=== PATIENT | female | born 1995 | race African-American/Black ===

== ENCOUNTER 2025-10-20 09:13 | Inpatient (IN) ==
[2025-10-20] MEDS ORDERED: LACTATED RINGERS 1,000 ML IV PRN (09:50)
[2025-10-20] MEDS ORDERED: SODIUM CHLORIDE FLUSH 0.9% 10 ML SYRINGE IVP PRN (09:50)
[2025-10-20] MEDS ORDERED: ONDANSETRON ODT 4 MG TABLET PO PRN (09:50)
[2025-10-20] MEDS ORDERED: fentaNYL 100 MCG/2 ML VIAL IVP PRN (09:50)
[2025-10-20] MEDS ORDERED: TRANEXAMIC ACID IN NACL 1,000 MG/100 ML BAG IV PRN (09:50)
[2025-10-20] MEDS ORDERED: CALCIUM CARBONATE CHEW 500 MG TABLET PO PRN (09:50)
[2025-10-20] MEDS ORDERED: METHYLERGONOVINE 0.2 MG/ML VIAL IM PRN (09:50)
[2025-10-20] MEDS ORDERED: DOCUSATE SODIUM 100 MG CAPSULE PO PRN (09:50)
[2025-10-20] MEDS ORDERED: ACETAMINOPHEN 500 MG TABLET PO PRN ×2 (09:50→10:40)
[2025-10-20] MEDS ORDERED: TERBUTALINE 1 MG/ML VIAL SUBQ PRN (09:50)
[2025-10-20] MEDS ORDERED: FAMOTIDINE 20 MG/2 ML VIAL IVP PRN (09:50)
[2025-10-20] MEDS ORDERED: CARBOPROST TROMETHAMINE 250 MCG/ML VIAL IM PRN (09:50)
[2025-10-20] MEDS ORDERED: OXYTOCIN 10 UNIT/ML VIAL IM PRN (09:50)
[2025-10-20] MEDS ORDERED: hydrALAZINE INJ 20 MG/ML VIAL IVP PRN ×3 (09:50→10:40)
[2025-10-20] MEDS ORDERED: LABETALOL 20 MG/4 ML SYRINGE IVP PRN ×5 (09:50→10:40)
[2025-10-20] MEDS ORDERED: METOCLOPRAMIDE 10 MG TABLET PO PRN (09:50)
--- NOTE | 2025-10-20 09:50 | HISTORY & PHYSICAL EXAMINATION ---
Admit History Smoking Status: Former smoker Other Maternal History Other Maternal History: Patient is a 30-year-old G7, P2 at 39 weeks 2 days gestation presenting for term labor with rupture of membranes. Membranes ruptured around the time of arrival. She was 5 cm at that time. She has good movement. No LIN/BV or RUQP. No vaginal bleeding. Denies nausea and vomiting. Denies urinary urgency or dysuria. All other symptoms reviewed and were negative except per HPI. Course LMP: End dec DELIA by LMP: US: 03/26/25 - 9w4d Final DELIA: 10/25/25 Problems: Pt states babies born 1 month early RH negative: rhogam given 08/23 + Trichomonas at 1st visit - self-swab repeated 05/29 and neg Pre- Weight: 143 BMI: 27 Blood type: O-RHOGAM AT 28WKSGiven 08/23 Antibody: Negative CBC: 11.2/33.7/288 RUB: Immune VZV:immune HBsAg: negative HepC: NR RPR/AB-EIA: NR HIV: Negative A1C: 5.3 PAP:2021 normal, due . was <30, due 3 yrs GC/CT: POSITIVE TRICH - treated- Negative 08/07/25, recheck with GBS. HSV: denies in self and partner Genetic testing: NIPT- negative Covid: declined 08/23 Flu: declined 08/23 FAS: scheduled 06/04 Placenta: anterior without previa Cord: 3VC WAGNER: WNL EFW: 310g 55% 50gm OGCT: 146 3HR GTT: no showed TDAP: declined 08/07, 08/23 Breast Pump: given declines RSV vaccine 3rd trimester: CBC:11.8/35.0/272 RPR:NR Antibody Screen:Negative 08/07/25, rhogam 08/23 GBS: 10/02/2025 Delivery plan: Contraception: depot provera? Meds/Allgy Home Medications Ambulatory Orders Medication Instructions Recorded Confirmed PNV 153-FA 400 mcg-om3 35 mg-dha tab PO .daily 5 10/02/25 25 mg-epa 5 mg-fish oil chew tablet ( Gummies) blood sugar diagnostic (Blood #50 ea 08/07/25 10/02/25 Glucose Test strips) blood-glucose meter (Blood Glucose #1 ea 08/07/2504/21 Monitoring kit) lancets 33 gauge #100 ea 08/07/25 10/02/25 lancets 28 gauge (FreeStyle #100 ea 09/18/25 10/02/25 Lancets) Allergies Allergies Allergy/AdvReac Type Severity Reaction Status Date / Time No Known Drug Allergies Allergy Verified 10/02/25 09:47 [facility] Active Problems All Active Problems (Updated 10/20/25 @ 11:07 by Juancarlos Caro MD) 39 weeks gestation of (Acute) Glucose intolerance of (Acute) Rh negative status during (Acute) Supervision of normal (Acute) Medical History Medical History (Updated 10/20/25 @ 11:07 by Juancarlos Caro MD) Encounter for screening for infections with a predominantly sexual mode of transmission Asthma Has not needed an inhaler since she was a child. Social History Social History (Updated 08/07/25 @ 12:57 by Nick Alexander MD) Smoking Status: Smoker with current status unk If you are a former smoker, when did you quit? (Date/Year): 2023 Number of Years Smoked: 2 Do you vape?: No ETOH Use: None Substance Use: denies use Physical Other Notes Labor Progress Note/Additional Text: General: Alert, oriented, umcomfortable with contractions Head: Normal cephalic atraumatic Eyes: PERRLA, extraocular motions intact. Respiratory: Normal rate of respiration. No accessory muscle use, normal respiratory effort. Abdomen: Gravid, nontender, nondistended Extremities: Normal range of motion Neuro: Oriented x3. Normal movements Psych: Appropriate mood and affect. Normal judgment and insight SVE: 7/100/0 FHT: 145 BPM baseline, moderate variability, accelerations present, no decelerations. [place]: 2-4 minutes Plan for Labor Plan For Labor I expect patient to be DC'd or transferred within 96 hours.: Yes Conclusion/Plan Problem List (1) 39 weeks gestation of : Plan: Admit to L&D, admit labs, epidural patient's request, anticipate . (2) Rh negative status during : Plan: Work up . Qualifiers: Trimester: third trimester Qualified Code(s): O26.893 - Other specified related conditions, third trimester; Z67.91 - Unspecified blood type, Rh negative (3) Supervision of normal : Plan: As above. Qualifiers: Normal : other normal Trimester: third trimester Qualified Code(s): Z34.83 - Encounter for supervision of other normal , third trimester (4) Glucose intolerance of : Plan: Did not do 3-hour GTT. Monitor blood sugars . Lab Results 10/20/25 09:30
[2025-10-20] MEDS ORDERED: LACTATED RINGERS 1,000 ML ONE (09:56)
[2025-10-20] MEDS ORDERED: OXYTOCIN/SODIUM CHLORIDE 500 ML IV ONE (09:58)
[2025-10-20] MEDS ORDERED: OXYTOCIN 10 UNIT/ML VIAL ONE (09:58)
[2025-10-20 10:11] LABS: HCT - HEMATOCRIT 34.6 % (37.0-47.0); HGB - HEMOGLOBIN 11.0 g/dL (12.0-16.0); MEAN PLATELET VOLUME 11.2 fL (7.9-10.8); NRBC ABSOLUTE COUNT (AUTO) 0.00 x10^3/uL; NUCLEATED RED BLOOD CELLS AUTO 0.0 /100WBC; PLT - PLATELET COUNT 286 10^3/uL (130-450); RED CELL DISTRIBUTION WIDTH 14.3 % (12.0-15.0)
[2025-10-20] MEDS: OXYTOCIN/SODIUM CHLORIDE 500 ML IV PRN (10:27)
[2025-10-20] MEDS ORDERED: OXYTOCIN/SODIUM CHLORIDE 500 ML IV PRN (10:40)
[2025-10-20] MEDS ORDERED: ONDANSETRON 4 MG/2 ML VIAL IVP PRN (10:40)
[2025-10-20] MEDS ORDERED: NALOXONE 0.4 MG/ML VIAL IVP PRN (10:40)
[2025-10-20] MEDS ORDERED: LABETALOL 5 MG/1 ML 20 ML MDV IVP PRN (10:40)
[2025-10-20] MEDS ORDERED: WITCH HAZEL/GLYCERIN 1 PAD TOP PRN (10:40)
[2025-10-20] MEDS ORDERED: HYDROCORTISONE 1% CREAM 28 GM TUBE TOP PRN (10:40)
--- NOTE | 2025-10-20 11:11 | DELIVERY NOTE ---
OB Labor and Delivery Note Labor Labor: Spontaneous Delivery Method Delivery Method: Spontaneous vaginal delivery Presentation Presentation: Vertex Nuchal Cord Nuchal Cord: None Amniotic Fluid Description Amniotic Fluid Description: Clear Delivery Outcome Delivery Date: 10/20/25 Delivery Time: 10:22 Delivery Outcome: Livebirth [place]: Placed in direct skin contact with mother and [place] used Cord Cord: 3 vessels Placenta Placenta: Intact Estimated Blood Loss Estimated Blood Loss (in cc): 200 Post Delivery Events Post Delivery Events: No post delivery events Delivery Comments (Free Text/Narrative) Delivery Comments (Free Text/Narrative): Preoperative Diagnoses 39 weeks gestation Term labor Rh- Glucose intolerance of Postoperative Diagnoses Same Delivery of live wolfe Status post spontaneous vaginal delivery Summary Patient came in at 39 weeks with spontaneous rupture membranes and active labor. She was 5 cm on admission. She was moved to labor room and after show vitals rechecked and found to be 7 cm. Short while later, she felt an urge to push and was checked and found to be complete. Delivery Summary: Patient was placed in the dorsal lithotomy position. Upon maternal pushing the head was delivered atraumatically followed by the anterior shoulder, posterior shoulder, then the remainder of the infant's body. She had no nuchal cord, but the cord was wrapped around the body, leg, arm. A female infant was delivered with APGARS of 8 at 1 minute and 9 at 5 minutes. The was placed on its mother's chest . After the cord finished pulsating, the umbilical cord was clamped times two and cut. The placenta delivered intact with three vessel cord, but small piece of membrane that tore off, this was grasped with a ring forcep and gently removed. Placenta was not sent to pathology. Oxytocin was administered. Uterine massage was performed until uterus was deemed firm. Patient did not tolerate vaginal exam or fundal exam as well. Upon inspection of the perineum, vagina and cervix were intact. Upon re- inspection the patient was hemostatic. Uterus again massaged and found to be firm. Needle and sponge counts were correct. Patient was stable and allowed to recover in L&D room. was stable and remained in room with mother. weight is pending at this time.
[2025-10-20] MEDS: IBUPROFEN 600 MG TABLET PO PRN (11:35)
[2025-10-20] MEDS: ACETAMINOPHEN 500 MG TABLET PO PRN (11:35)
[2025-10-20 13:18] LABS: ALT ALANINE AMINOTRANSFERASE 7.0 IU/L (10-60); AST ASPARTATE AMINOTRANSFERASE 15.0 IU/L (10-42); BUN - BLOOD UREA NITROGEN 7.0 mg/dL (6-20); CARBON DIOXIDE - CO2 21.0 mmol/L (21-32); CREATININE 0.4 mg/dL (0.6-1.3); GFR - MDRD 224.0 (>89)
--- NOTE | 2025-10-20 13:56 | PHARMACY PROGRESS NOTE ---
Best Possible Medication History Admit Date and Time: 10/20/25 [id number] Home Medications Medication Instructions Recorded Confirmed Type PNV 153-FA 400 mcg-om3 35 mg-dha 1 tab PO DAILY 10/20/25 History 25 mg-epa 5 mg-fish oil chew tablet ( Gummies) blood sugar diagnostic (Blood #50 ea 08/07/25 10/02/25 Rx Glucose Test strips) blood-glucose meter (Blood Glucose #1 ea 08/07/2504/21 Rx Monitoring kit) lancets 33 gauge #100 ea 08/07/25 10/02/25 Rx lancets 28 gauge (FreeStyle #100 ea 09/18/25 10/02/25 Rx Lancets) Processed by: Pharmacy Medications reviewed in ED?: No Medication History completed: Yes [facility] Statement: As the person ultimately responsible for medication therapy, providers are able to order a medication from an existing home medication list in [facility] via the "Reconcile Routine" prior to Confirmation of that medication by lab support tech. Such practice is discouraged except when the physician, in their clinical suyapa gment, deems that a medical need exists for a medication without regard to previous use.
[2025-10-20] MEDS: RHO(D) IMMUNE GLOBULIN 300 MCG SYRINGE IVP ONE (16:46)
[2025-10-20] MEDS: SIMETHICONE CHEW 80 MG TABLET PO PRN (16:46)
[2025-10-20] MEDS: SODIUM CHLORIDE FLUSH 0.9% 10 ML SYRINGE IVP SCH (16:49)
[2025-10-20] MEDS: DOCUSATE SODIUM 100 MG CAPSULE PO SCH (21:36)
--- NOTE | 2025-10-21 08:02 | Discharge Summary ---
Discharge Summary Admit Date: 10/20/25 Discharge Date: 10/21/25 Discharging Provider: Juancarlos Caro Code Status: Attempt Resuscitation DIAGNOSES Admission Diagnoses: 39 weeks gestation term labor Rh negative Discharge Diagnoses with Status of Each Condition: Same Status post spontaneous vaginal delivery Delivery of live wolfe HPI History of Present Illness: Subjective Patient reports she is doing well. Lochia appropriate. Denies heavy bleeding. Ambulating. Pelvic and abdominal pain well-controlled. Tolerating oral intake. Diet: Regular. Voiding without difficulty. Passing flatus. Denies BM. Patient is bonding with baby in room Breast feeding going well. Denies feeling lightheaded, dizzy or excessively fatigued. Objective General: Alert, oriented, no apparent distress. Cardiovascular: Regular rate. Regular rhythm. Lungs: No increased work of breathing. Abdomen: Uterus firm. Below umbilicus. No guarding or rebound. Extremities: No pain on palpation. No cords palpated. Distal pulses intact. HOSPITAL COURSE Hospital Course: Patient was a 30-year-old G7, P2 presented at 39 weeks 2 days gestation in active labor with rupture membranes. She was admitted for labor and progressed quickly to complete. Labor was uncomplicated as well as delivery other than a body cord. course was unremarkable and they were discharged on day 1. ALLERGIES Allergies Allergy/AdvReac Type Severity Reaction Status Date / Time No Known Drug Allergies Allergy Verified 10/02/25 09:47 MEDICATIONS Ambulatory Orders Medication Instructions Recorded Confirmed PNV 153-FA 400 mcg-om3 35 mg-dha 1 tab PO DAILY 10/20/25 25 mg-epa 5 mg-fish oil chew tablet ( Gummies) blood sugar diagnostic (Blood #50 ea 08/07/25 10/02/25 Glucose Test strips) blood-glucose meter (Blood Glucose #1 ea 08/07/2504/21 Monitoring kit) lancets 33 gauge #100 ea 08/07/25 10/02/25 lancets 28 gauge (FreeStyle #100 ea 09/18/25 10/02/25 Lancets) PHYSICAL EXAM AT DISCHARGE Vital Signs: Vital Signs x48h Temp Pulse Resp BP Pulse Ox 10/21/25 05:15 36.7 C 87 17 118/87 10/21/25 02:00 37.0 C 74 18 99 LABS 10/20/25 09:30 10/20/25 12:25 FOLLOW UP [facility] TIME SPENT Time Spent in Discharge (Minutes): 20 Discharge Plan Discharge Patient Disposition: 01 Home, Self Care Prescriptions: Continued (DME) Blood Glucose Test Strip See Rx Instructions .MEDSUPPLY Qty: 50 0RF Rx Instructions: Check blood sugar fasting in the morning and then 2 hours after breakfast, lunch, and dinner. Keep log of values. (DME) blood-glucose meter [Blood Glucose Monitoring] Kit See Rx Instructions .MEDSUPPLY Qty: 1 0RF Rx Instructions: Check blood sugar fasting in the morning and then 2 hours after breakfast, lunch, and dinner. Keep log of values. (DME) lancets 33 gauge misc See Rx Instructions .MEDSUPPLY Qty: 100 0RF Rx Instructions: Check blood sugar fasting in the morning and then 2 hours after breakfast, lunch, and dinner. Keep log of values. (DME) lancets [FreeStyle Lancets] 28 gauge misc See Rx Instructions .ROUTE .MEDSUPPLY Qty: 100 0RF Rx Instructions: Check blood sugars four times daily: fasting in the morning and then 2 hours after breakfast, lunch, and dinner Gummies 400 mcg-35 mg- 25 mg-5 mg tablet,chewable 1 tab PO DAILY Activity Restrictions: Additional Comments Print Language: Frisian Patient Instructions: After a Vaginal , Depression Follow-up Care: Nick Alexander MD [Primary Care Provider, Obstetrics/Gynecology]
[2025-10-22 06:23] VITALS: O2SAT 99
[2025-10-22] MEDS: NIFEdipine ER 30 MG TABLET PO ONE (17:21)
[2025-10-22 17:28] VITALS: TEMP 98.6
[2025-10-22 17:29] VITALS: BP 154/90
[2025-10-22 18:04] LABS: HCT - HEMATOCRIT 35.6 % (37.0-47.0); HGB - HEMOGLOBIN 11.2 g/dL (12.0-16.0); MEAN PLATELET VOLUME 9.9 fL (7.9-10.8); PLT - PLATELET COUNT 324.0 10^3/uL (130-450); RED CELL DISTRIBUTION WIDTH 14.6 % (12.0-15.0)
[2025-10-22 18:16] LABS: ALT ALANINE AMINOTRANSFERASE 8.0 IU/L (10-60); AST ASPARTATE AMINOTRANSFERASE 12.0 IU/L (10-42); BUN - BLOOD UREA NITROGEN 9.0 mg/dL (6-20); CARBON DIOXIDE - CO2 26.0 mmol/L (21-32); CREATININE 0.6 mg/dL (0.6-1.3); GFR - MDRD 140.0 (>89)
--- NOTE | 2025-10-22 19:23 | Labor Flowsheet ---
Labor Flowsheet Datetime Report Generated by CPN: 10/22/2025 19:23 Datetime: 10/22/2025 17:06 VITAL SIGNS NBP Sys/Smitha/Mean (mmHg): 154 : 90 : 100 Pulse: 81 LaborFlag: Labor Datetime: 10/22/2025 05:49 SpO2 (%): 98 Datetime: 10/20/2025 11:14 Membranes Ruptured Date/Time: 10/20/2025 09:20 Membranes Rupture Method: Spontaneous Amniotic Fluid Color: Clear Amniotic Fluid Amount: Small Amniotic Fluid Odor: None Datetime: 10/20/2025 10:27 MEDICATIONS Pitocin (milliunits): Started @ 999 Medication Comments: PP bolus Datetime: 10/20/2025 10:22 FHR Baseline Rate : 130 Datetime: 10/20/2025 10:19 VAGINAL EXAM Dilatation (cm): 10.0 Station: 1 Datetime: 10/20/2025 10:17 UTERINE ACTIVITY Monitor Mode: External Frequency (min): q2 Quality: Strong Duration (sec): 60-110 Pattern: Normal: <= 5 Contractions in 10 Minutes Resting Tone (Palpate): Relaxed ASSESSMENT A Monitor Mode: Telemetry Variability: Moderate 6-25 bpm Accelerations: None Decelerations: Variable Category: Category II Communication Comments: Dr. Caro at bedside Datetime: 10/20/2025 09:55 COMMUNICATION Communication: Provider at Bedside Datetime: 10/20/2025 09:54 Respirations: 16 Temperature (C): 36.6 Datetime: 10/20/2025 09:25 Effacement (%): 75 Exam by: B. Maricruz Datetime: 10/20/2025 09:17 Stage of : Labor
--- NOTE | 2025-10-22 23:40 | Discharge Summary ---
"Discharge Summary Admit Date: 10/20/25 Discharge Date: 10/22/25 Discharging Provider: Sunshine Monsalve DIAGNOSES Admission Diagnoses: term in spontaneous labor Discharge Diagnoses with Status of Each Condition: term with normal spontaneous labor and delivery. HPI History of Present Illness: now 1 with uncomplicated at term presents in spontaneous labor. CONSULTS | PROCEDURES Procedures: unmedicated vaginal delivery HOSPITAL COURSE Hospital Course: Patient presented in spontaneous labor and delivered a few hours labor. Post most bps were over 140/90. She woke up with a headache on ppd #2 that she felt was from minimal sleep and resolved with tylenol. Labs were normal. Nifedipine 30 mg was given and prescribed and appt made to f/u in clinic in 1 day. She is breast feeding. ALLERGIES Allergies Allergy/AdvReac Type Severity Reaction Status Date / Time No Known Drug Allergies Allergy Verified 10/02/25 09:47 MEDICATIONS Ambulatory Orders Medication Instructions Recorded Confirmed PNV 153-FA 400 mcg-om3 35 mg-dha 1 tab PO DAILY 10/23/25 25 mg-epa 5 mg-fish oil chew tablet ( Gummies) blood sugar diagnostic (Blood #50 ea 08/07/25 10/23/25 Glucose Test strips) blood-glucose meter (Blood Glucose #1 ea 08/07/2509/29 Monitoring kit) lancets 33 gauge #100 ea 08/07/25 10/23/25 lancets 28 gauge (FreeStyle #100 ea 09/18/25 10/23/25 Lancets) acetaminophen 325 mg capsule 325 - 650 mg (1 - 2 x 325 mg) PO 10/22/25 10/23/25 Q4H PRN pain #60 caps docusate sodium 100 mg capsule 100 mg PO BID PRN const ipation #60 10/22/25 10/23/25 (Colace) caps ibuprofen 600 mg tablet 600 mg PO Q6H PRN pain #30 t abs 10/22/25 10/23/25 nifedipine 30 mg tablet,extended 30 mg PO QDAY #30 tab s 10/22/25 10/23/25 release PHYSICAL EXAM AT DISCHARGE Vital Signs: Vital Signs x48h Temp Pulse Resp BP 10/22/25 17:28 37.0 C 100 16 154/90 H General Appearance: positive No acute distress and Alert Respiratory: positive No respiratory distress Cardiovascular: positive Regular rate & rhythm LABS 10/22/25 17:56 10/22/25 17:56 FOLLOW UP Follow Up: in clinic 10/23 for bp check. TIME SPENT Time Spent in Discharge (Minutes): 45 Discharge Plan Discharge Patient Disposition: 01 Home, Self Care Condition: Good Prescriptions: Continued (DME) Blood Glucose Test Strip See Rx Instructions .MEDSUPPLY Qty: 50 0RF Rx Instructions: Check blood sugar fasting in the morning and then 2 hours after breakfast, lunch, and dinner. Keep log of values. (DME) blood-glucose meter [Blood Glucose Monitoring] Kit See Rx Instructions .MEDSUPPLY Qty: 1 0RF Rx Instructions: Check blood sugar fasting in the morning and then 2 hours after breakfast, lunch, and dinner. Keep log of values. (DME) lancets 33 gauge misc See Rx Instructions .MEDSUPPLY Qty: 100 0RF Rx Instructions: Check blood sugar fasting in the morning and then 2 hours after breakfast, lunch, and dinner. Keep log of values. nifedipine 30 mg tablet extended release 30 mg PO QDAY Qty: 30 2RF docusate sodium [Colace] 100 mg capsule 100 mg PO BID PRN (Reason: constipation) Qty: 60 1RF ibuprofen 600 mg tablet 600 mg PO Q6H PRN (Reason: pain) Qty: 30 1RF acetaminophen 325 mg capsule 325 - 650 mg PO Q4H PRN (Reason: pain) Qty: 60 1RF (DME) lancets [FreeStyle Lancets] 28 gauge misc See Rx Instructions .ROUTE .MEDSUPPLY Qty: 100 0RF Rx Instructions: Check blood sugars four times daily: fasting in the morning and then 2 hours after breakfast, lunch, and dinner Gummies 400 mcg-35 mg- 25 mg-5 mg tablet,chewable 1 tab PO DAILY Activity Restrictions: Additional Comments Diet: Regular Print Language: Sami Patient Instructions: After a Vaginal , Depression Follow-up Care: Nick Alexander MD [Primary Care Provider, Obstetrics/Gynecology] Vitals documented within 30 minutes of discharge?: Yes"
== END 2025-10-22 18:20 | disposition home or self-care (01) | DRG 807 ==
LOC: WFO 09:13 → FBP 09:17
PROVIDERS: ADMIT Obstetrics & Gynecology; ATTEND Obstetrics & Gynecology